=== PATIENT | female | born 1970 | race Caucasian/White ===

== ENCOUNTER → 2021-06-29 | Outpatient (CLI) | payer BC, OTHER ==
[2021-06-29 15:05] LABS: HEMOGLOBIN 13.1 gm/dl (12.3-15.3); RED BLOOD COUNT 5.33 M/UL (4.00-5.10); WHITE BLOOD COUNT 10.1 K/UL (4.5-11.0)
[2021-06-29 15:24] LABS: BUN/CREATININE RATIO 36 (0-10)
[2021-06-30 08:13] LABS: VITAMIN D, 25-HYDROXY 28.1 ng/mL (30.0-100.0)
[2021-06-30 10:13] LABS: RHEUMATOID ARTHRITIS FACTOR <10.0 IU/mL (<14.0)
[2021-06-30 11:13] LABS: HBSAG SCREEN Negative (Negative); HEP B CORE AB, TOT Negative (Negative)
[2021-06-30 12:13] LABS: HCV AB <0.1 (0.0-0.9)
[2021-07-03 20:11] LABS: QUANTIFERON MITOGEN VALUE >10.00 IU/mL (.); QUANTIFERON NIL VALUE 0.02 IU/mL (.); QUANTIFERON TB1 AG VALUE 0.05 IU/mL (.); QUANTIFERON TB2 AG VALUE 0.01 IU/mL (.); QUANTIFERON-TB GOLD PLUS Negative (Negative)
== END ==
LOC: LAB 13:21
PROVIDERS: Nurse Practitioner Family
DX: Z11.59 Encounter for screening for other viral diseases (principal); M54.50 Low back pain, unspecified; M25.50 Pain in unspecified joint; D89.9 Disorder involving the immune mechanism, unspecified; R76.8 Other specified abnormal immunological findings in serum; E55.9 Vitamin D deficiency, unspecified; Z15.89 Genetic susceptibility to other disease; Z79.899 Other long term (current) drug therapy; M47.898 Other spondylosis, sacral and sacrococcygeal region
CPT/HCPCS: 36415; 72202; 80053; 81374; 82550; 82728; 83520; 84439; 84443; 85025; 85652; 86140; 86200; 86431; 86704; 86803; 87340